=== PATIENT | female | born 1955 | race Two or more races ===

== ENCOUNTER 2018-07-10 10:53 | Emergency (ER) | payer OTHER ==
[2018-07-10 11:01] VITALS: BMI 38.5
[2018-07-10] MEDS ORDERED: ALBUTEROL SO4 2.5/IPRATROPIUM 0.5 INH SOL 3 ML VIAL.NEB. NEB ONE ×2 (12:06→13:23)
[2018-07-10] MEDS ORDERED: predniSONE 20 MG TABLET (UD) PO ONE (12:15)
--- NOTE | 2018-07-10 12:17 | PDOC ---
History of Present Illness - General Chief Complaint: Shortness of Breath Stated Complaint: SHORTNESS OF BREATHE History Source: Patient Exam Limitations: No Limitations - History of Present Illness Initial Comments: 07/10/18 12:15 62 yo F ho asthma preDM here c/o cough congestion myalgia, and subjective fevers started yesterday. has sick contacts of [facility] with similar illness. this am pt had asthma attack. used inhaler 10 times, had mild relief. no h/o icu or intubation. no mod factors. no other complaints. no n/v. Past History - Past Medical History Allergies/Adverse Reactions: Allergies Allergy/AdvReac Type Severity Reaction Status Date / Time No Known Allergies Allergy Verified 07/10/18 11:16 Home Medications: Ambulatory Orders Albuterol Sulfate Inhaler - [Ventolin HFA Inhaler -] 1 - 2 inh PO QID PRN Dexlansoprazole [Dexilant -] 60 mg PO DAILY 01/01/15 Zolpidem Tartrate [Ambien] 10 mg PO HS 01/01/15 Aspirin [ASA -] 81 mg PO DAILY #30 tab.chew 01/05/15 Atorvastatin Ca [Lipitor -] 40 mg PO HS #30 tablet 01/05/15 Meclizine HCl 25 mg PO TID PRN #30 tablet 01/05/15 Metoprolol Succinate [Toprol XL -] 12.5 mg PO DAILY #0 01/05/15 Prednisone 10 mg PO DAILY #9 tablet 01/05/15 Ibuprofen [Motrin -] 800 mg PO PRN PRN 01/11/16 Oxycodone HCl/Acetaminophen [Percocet 5-325 mg Tablet -] 2 tab PO Q4H #60 tablet MDD 8 01/11/16 Azithromycin 250 mg PO DAILY #6 tablet 07/10/18 Lisinopril [Prinivil] 20 mg PO DAILY 07/10/18 Mirtazapine [Remeron -] 15 mg PO DAILY 07/10/18 Mirtazapine [Remeron -] 30 mg PO HS 07/10/18 Prednisone [Deltasone] 20 mg PO BID #10 tablet 07/10/18 Ranitidine HCl 150 mg PO DAILY 07/10/18 Anemia: No Asthma: Yes Cancer: No Cardiac Disorders: No CVA: No COPD: No CHF: No Dementia: No Diabetes: No GI Disorders: No Disorders: No HTN: Yes Hypercholesterolemia: Yes Liver Disease: No Seizures: No Thyroid Disease: No - Suicide/Smoking/Psychosocial Hx Smoking Status: No Smoking History: Never smoked Have you smoked in the past 12 months: No Number of Cigarettes Smoked Daily: 0 Information on smoking cessation initiated: No Hx Alcohol Use: No Drug/Substance Use Hx: No Substance Use Type: None Hx Substance Use Treatment: No Review of Systems - Review of Systems Constitutional: Yes: Fever. No: Chills, Diaphoresis, Weight Stable HEENTM: No: Eye Pain, Blurred Vision, Tearing Respiratory: Yes: Cough, Shortness of Breath, Wheezing, Productive cough Cardiac (ROS): No: Chest Pain : No: Burning, Dysuria Musculoskeletal: Yes: Muscle Pain. No: Back Pain Integumentary: No: Bruising, Change in Color Hematologic/Lymphatic: No: Anemia, Blood Clots All Other Systems: Reviewed and Negative *Physical Exam - Vital Signs Last Vital Signs Temp Pulse Resp BP Pulse Ox 98.3 F 103 H 16 138/73 100 07/10/18 10:58 07/10/18 10:58 07/10/18 10:58 07/10/18 10:58 07/10/18 11:33 - Physical Exam Comments: 07/10/18 12:26 awake alert lung clear no wheeze, decreased breath sound at bases bilaaterally. heart reg tachycardia. abd soft nt nd. ext wwp no edema. no calf tenderness. nuero alert and oriented x 3. Moderate Sedation - Procedure Monitoring Vital Signs: Procedure Monitoring Vital Signs Temperature 98.3 F 07/10/18 10:58 Pulse Rate 103 H 07/10/18 10:58 Respiratory Rate 16 07/10/18 10:58 Blood Pressure 138/73 07/10/18 10:58 O2 Sat by Pulse Oximetry (%) 100 07/10/18 11:33 ED Treatment Course - RADIOLOGY Radiology Studies Ordered: Category Date Time Status CHEST PA & LAT [RAD] Stat Radiology 07/10/18 12:05 Ordered Medical Decision Making - Medical Decision Making 07/10/18 12:27 62 yo F with h/o asthma, here with asthma exacerbation myalgia fever and cough. differential pna, influenze, asthma exacerabtion other viral uri. plan ekg cxr flu swab, duoneb, steroids, tylenol reassessl. *DC/Admit/Observation/Transfer Diagnosis at time of Disposition: Asthma attack - Discharge Dispostion Disposition: HOME Condition at time of disposition: Improved Decision to Admit order: No - Prescriptions Prescriptions: Azithromycin 250 mg PO DAILY #6 tablet Prednisone [Deltasone] 20 mg PO BID #10 tablet - Referrals Referrals: Alyssa Simental MD [Primary Care Provider] - - Patient Instructions Printed Discharge Instructions: Common Cold, Asthma -- Adult, Acute Bronchitis Additional Instructions: you flu swab is negative for flu. your chest xray is negative. we will treat you for bronchitis with azithromycin, 500 mg on day one, then 250 mg daily x 4 days. you can take prednisone. 20mg twice daily x 4 days. follow up with Dr Simental, call to schedule. - Post Discharge Activity
[2018-07-10] MEDS ORDERED: ACETAMINOPHEN 325 MG TABLET (FP) PO ONE (12:28)
[2018-07-10] MEDS ORDERED: predniSONE 20 MG TABLET (UD) ONE (13:22)
[2018-07-10] MEDS ORDERED: ACETAMINOPHEN 325 MG TABLET (FP) ONE (13:23)
[2018-07-10] MEDS: methylPREDNISolone NA SUCC 125 MG/2 ML VIAL IVPUSH ONE ×2 (13:28→13:31)
[2018-07-10 16:44] VITALS: BP 139/93; PULSE 90; TEMP 97.8
== END 2018-07-10 16:44 | disposition home or self-care (01) ==
LOC: JER 10:53
PROC: 3E0F7GC Introduction of Other Therapeutic Substance into Respiratory Tract, Via Natural or Artificial Opening (ICD-10-PCS; principal; 2018-07-10)
DX: J45.901 Unspecified asthma with (acute) exacerbation (principal)
CPT/HCPCS: 71046-TC-FY; 87804; 99282-25

== ENCOUNTER 2021-09-22 13:29 | Emergency (ER) | payer OTHER ==
[2021-09-22 13:45] VITALS: BP 131/74; PULSE 95; TEMP 98; BMI 38.4
[2021-09-22 16:14] LABS: THROAT:GRP A STREP NOT DETECTED (NOTDETECTED)
== END 2021-09-22 15:10 | disposition home or self-care (01) ==
LOC: JER 13:29
DX: J20.9 Acute bronchitis, unspecified (principal)
CPT/HCPCS: 0241U-QW; 71046-TC-FY; 87651; 99284-25